=== PATIENT | female | born 2000 | race Caucasian/White ===

== ENCOUNTER 2022-03-12 13:31 | Observation (INO) | payer OTHER ==
[~2022-03-12] VITALS: Ht 162.6 cm; Wt 75.7 kg
[2022-03-12] MEDS ORDERED: PRETAB PO (14:12)
[2022-03-12] MEDS ORDERED: ONDA4SOL8 PO (14:13)
[2022-03-12 14:19] VITALS: BP 139/86
== END 2022-03-12 21:00 | disposition home or self-care (01) ==
LOC: MLD 13:31
PROVIDERS: ADMIT Obstetrics & Gynecology; ATTEND Obstetrics & Gynecology
DX: O36.8130 Decreased fetal movements, third trimester, not applicable or unspecified (principal); Z20.822 Contact with and (suspected) exposure to COVID-19; Z3A.40 40 weeks gestation of pregnancy
CPT/HCPCS: 59025; 76819; 81000; 87426; G0378; Q0092